=== PATIENT | male | born 1950 | race Two or more races ===

== ENCOUNTER 2023-10-12 13:00 | Inpatient (IN) | payer OTHER, MEDICAID ==
[~2023-10-12] VITALS: Ht 165.1 cm; Wt 92.4 kg
[2023-10-12 14:58] LABS: AMPHET/METH SCREEN,URINE NEGATIVE (NEGATIVE); BARBITURATE SCREEN, URINE NEGATIVE (NEGATIVE); BENZODIAZEPINES SCREEN,URINE NEGATIVE (NEGATIVE); CANNABINOID SCREEN,URINE NEGATIVE (NEGATIVE); COCAINE SCREEN,URINE NEGATIVE (NEGATIVE); METHADONE SCREEN, URINE NEGATIVE (NEGATIVE); OPIATE SCREEN,URINE NEGATIVE (NEGATIVE); PHENCYCLIDINE SCREEN,URINE NEGATIVE (NEGATIVE)
[2023-10-12 15:02] LABS: ALCOHOL, URINE DRUG SCREEN NEGATIVE (NEGATIVE)
[2023-10-12 15:13] LABS: BASOPHILS % (AUTO) 0.4 % (0.0-2.0); EOSINOPHILS % (AUTO) 0.2 % (1.0-6.0); HEMATOCRIT 43.9 % (41-53); HEMOGLOBIN 14.6 g/dL (13.5-17.5); LYMPHOCYTES # (AUTO) 1.9 K/uL (1.0-4.8); LYMPHOCYTES % (AUTO) 19.6 % (22.0-44.0); MEAN CORPUSCULAR HEMOGLOBIN 29.1 pg (26.0-34.0); MEAN CORPUSCULAR HGB CONC 33.3 G/dL (31.0-37.0); MEAN CORPUSCULAR VOLUME 88 fL (80-100); MONOCYTES % (AUTO) 10.5 % (2.0-9.0); NEUTROPHILS # (AUTO) 6.7 K/uL (1.8-7.7); NEUTROPHILS % (AUTO) 69.3 % (40.0-70.0); PLATELET COUNT (AUTO) 239 K/uL (150-450); RED BLOOD CELL COUNT(AUTO) 5.02 MIL/uL (4.50-5.90); RED CELL DISTRIBUTION WIDTH 14.6 % (11.5-14.5); WHITE BLOOD COUNT (AUTO) 9.7 K/uL (4.5-11.0)
[2023-10-12 15:23] LABS: ANION GAP 5 mmol/L (8-16); CALCIUM, TOTAL 9.7 mg/dL (8.8-10.5); CARBON DIOXIDE 34 mmol/L (22-29); CHLORIDE 101 mmol/L (98-107); GLOMERULAR FILTR. RATE CALC > 60 mL/min (>60); GLUCOSE,RANDOM 107 mg/dL (70-110); SODIUM SERUM 140 mmol/L (136-145); UREA NITROGEN, BLOOD 23 mg/dL (7-18)
[2023-10-12 15:28] LABS: ALANINE AMINOTRANSFERASE 79 U/L (12-78); ALBUMIN 4.3 g/dL (3.4-5.0); ALKALINE PHOSPHATASE 105 U/L (46-116); ASPARTATE AMINOTRANSFERASE 38 U/L (15-37); BILIRUBIN,TOTAL 1.4 mg/dL (0.1-1.0); TOTAL PROTEIN, SERUM 8.6 g/dL (6.4-8.2)
[2023-10-12 15:44] LABS: COVID AG,FIA SOURCE NASAL SWAB
[2023-10-12] MEDS: LORazepam 2 MG TABLET PO ONE (15:45)
[2023-10-12 15:58] LABS: ALCOHOL, BLOOD (SERUM) < 3 mg/dL (0-10)
[2023-10-12 16:07] LABS: SARS-COV2 (COVID) ANTIGEN,FIA Negative (Negative)
[2023-10-12] MEDS ORDERED: HALOPERIDOL 5 MG TABLET PO PRN (18:30)
[2023-10-12] MEDS ORDERED: PNEUMOCOCCAL VACCINE POLYVALENT 0.5 ML SYRINGE [PPSV23] IM. ONE (19:15)
[2023-10-12 20:43] VITALS: BP 98/53; PULSE 78; RESP 16; TEMP 96.5; O2SAT 95
[2023-10-12] MEDS: ZOLPIDEM TARTRATE 10 MG TABLET PO PRN (22:00)
[2023-10-13 08:16] VITALS: BP 147/85; PULSE 93; RESP 15; TEMP 97.9; O2SAT 98
[2023-10-13] MEDS ORDERED: BENZOCAINE/MENTHOL LOZENGE PO PRN (10:00)
[2023-10-13] MEDS ORDERED: DOCUSATE SODIUM 100 MG CAPSULE PO PRN (10:00)
[2023-10-13] MEDS ORDERED: OMEPRAZOLE 20 MG CAPSULE PO PRN (10:00)
[2023-10-13] MEDS ORDERED: IBUPROFEN 600 MG TABLET PO PRN (10:00)
[2023-10-13] MEDS ORDERED: MAG HYDROX/ALUMINUM HYD/SIMETH ES 30 ML SUSPENSION UDCUP PO PRN (10:00)
[2023-10-13] MEDS ORDERED: PETROLATUM,WHITE 28 GM JELLY TP PRN (10:00)
[2023-10-13] MEDS ORDERED: ONDANSETRON HCL 4 MG TABLET PO PRN (10:00)
[2023-10-13] MEDS ORDERED: BACITRACIN 28 GM OINTMENT TP PRN (10:00)
[2023-10-13] MEDS ORDERED: CloNIDine HCL 0.1 MG TABLET PO PRN (10:00)
[2023-10-13] MEDS ORDERED: ACETAMINOPHEN 325 MG TABLET PO PRN (10:00)
[2023-10-13] MEDS ORDERED: ALBUTEROL SULFATE HFA 90 MCG/PUFF 8 GM INHALER IH PRN (10:00)
[2023-10-13] MEDS ORDERED: LOPERAMIDE HCL 2 MG CAPSULE PO PRN (10:00)
[2023-10-13] MEDS ORDERED: CITA-144 PO (10:46)
[2023-10-13] MEDS: LORazepam 2 MG TABLET PO PRN (10:57)
[2023-10-13] MEDS: BuPROPion HCL XL 150 MG ER TABLET PO SCH (11:06)
[2023-10-13] MEDS: SERTRALINE HCL 50 MG TABLET PO SCH (11:06)
[2023-10-13 21:10] VITALS: BP 130/86; PULSE 87; RESP 16; TEMP 97.5; O2SAT 98
[2023-10-14 07:06] LABS: HEPATITIS C AB (EIA) Reactive (Non Reactive)
[2023-10-14 08:22] VITALS: BP 142/88; PULSE 83; RESP 14; TEMP 98; O2SAT 99
[2023-10-14] MEDS: MAGNESIUM HYDROXIDE SUSPENSION 30 ML UDCUP PO PRN (12:30)
[2023-10-14] MEDS ORDERED: SERT-158 PO (18:32)
[2023-10-14] MEDS ORDERED: BUPR-514 PO (18:33)
[2023-10-19 11:11] LABS: HEPATITIS C RT-PCR,QNT HCV Not Detected IU/mL
== END 2023-10-14 19:10 | disposition home or self-care (01) | DRG 885 ==
LOC: EMS 13:03 → B2S 16:18
PROVIDERS: ADMIT Psychiatry & Neurology Psychiatry; ATTEND Psychiatry & Neurology Psychiatry
DX: F33.2 Major depressive disorder, recurrent severe without psychotic features (principal); R45.851 Suicidal ideations; F41.9 Anxiety disorder, unspecified; G47.00 Insomnia, unspecified; Z20.822 Contact with and (suspected) exposure to COVID-19; I10 Essential (primary) hypertension; F19.10 Other psychoactive substance abuse, uncomplicated; K59.00 Constipation, unspecified; F29 Unspecified psychosis not due to a substance or known physiological condition
CPT/HCPCS: 80053; 80307; 85025; 86803; 87340; 87522; G0480

== ENCOUNTER 2023-10-25 12:50 | Emergency (ER) | payer OTHER, MEDICAID ==
[~2023-10-25] VITALS: Ht 167.6 cm; Wt 86.4 kg
[~2023-10-25 12:50] MED LIST: BUPR-514 PO; SERT-158 PO
[2023-10-25 13:48] VITALS: BP 159/100; PULSE 88; RESP 18; TEMP 98.7
[2023-10-25] MEDS ORDERED: LORA-999 PO (14:09)
[2023-10-25] MEDS ORDERED: AMLO-258 PO (14:09)
[2023-10-25] MEDS ORDERED: QUET25TA PO (14:09)
[2023-10-25] MEDS ORDERED: PANT-31 PO (14:09)
[2023-10-25] MEDS: LORazepam 2 MG/ML VIAL IM ONE (14:20)
[2023-10-25 14:34] LABS: APPEARANCE,URINE TURBID (CLEAR); BILIRUBIN,URINE NEGATIVE (NEGATIVE); COLOR,URINE YELLOW (YELLOW); GLUCOSE, URINE (UA) NEGATIVE (NEGATIVE); KETONES,URINE NEGATIVE (NEGATIVE); LEUKOCYTE ESTERASE ,URINE NEGATIVE (NEGATIVE); NITRATE,URINE NEGATIVE (NEGATIVE); OCCULT BLOOD,URINE NEGATIVE (NEGATIVE); PH,URINE 7.5 (5.0-8.0); PH,URINE DRUG SCREEN 7.5 (5.0-8.0); PROTEIN,URINE NEGATIVE (NEGATIVE); SPECIFIC GRAVITIY, URINE 1.012 (1.003-1.030); UROBILINOGEN,URINE <=1.0 mg/dL (<=1.0)
[2023-10-25 14:41] LABS: BASOPHILS % (AUTO) 0.4 % (0.0-2.0); EOSINOPHILS % (AUTO) 0.6 % (1.0-6.0); HEMATOCRIT 43.9 % (41-53); HEMOGLOBIN 14.5 g/dL (13.5-17.5); LYMPHOCYTES # (AUTO) 1.9 K/uL (1.0-4.8); LYMPHOCYTES % (AUTO) 21.7 % (22.0-44.0); MEAN CORPUSCULAR HEMOGLOBIN 28.7 pg (26.0-34.0); MEAN CORPUSCULAR HGB CONC 33.1 G/dL (31.0-37.0); MEAN CORPUSCULAR VOLUME 87 fL (80-100); MONOCYTES % (AUTO) 11.3 % (2.0-9.0); NEUTROPHILS # (AUTO) 5.8 K/uL (1.8-7.7); PLATELET COUNT (AUTO) 206 K/uL (150-450); RED BLOOD CELL COUNT(AUTO) 5.06 MIL/uL (4.50-5.90); RED CELL DISTRIBUTION WIDTH 15.1 % (11.5-14.5); WHITE BLOOD COUNT (AUTO) 8.7 K/uL (4.5-11.0)
[2023-10-25 14:41] LABS: ALCOHOL, URINE DRUG SCREEN NEGATIVE (NEGATIVE); AMPHET/METH SCREEN,URINE NEGATIVE (NEGATIVE); BARBITURATE SCREEN, URINE NEGATIVE (NEGATIVE); BENZODIAZEPINES SCREEN,URINE NEGATIVE (NEGATIVE); CANNABINOID SCREEN,URINE NEGATIVE (NEGATIVE); COCAINE SCREEN,URINE NEGATIVE (NEGATIVE); METHADONE SCREEN, URINE NEGATIVE (NEGATIVE); OPIATE SCREEN,URINE NEGATIVE (NEGATIVE); PHENCYCLIDINE SCREEN,URINE NEGATIVE (NEGATIVE)
[2023-10-25 14:52] LABS: ANION GAP 5 mmol/L (8-16); CALCIUM, TOTAL 9.6 mg/dL (8.8-10.5); CARBON DIOXIDE 32 mmol/L (22-29); CHLORIDE 100 mmol/L (98-107); CREATININE 0.83 mg/dL (0.60-1.30); GLOMERULAR FILTR. RATE CALC > 60 mL/min (>60); GLUCOSE,RANDOM 110 mg/dL (70-110); POTASSIUM 3.5 mmol/L (3.5-5.1); SODIUM SERUM 137 mmol/L (136-145); UREA NITROGEN, BLOOD 15 mg/dL (7-18)
[2023-10-25 14:56] LABS: COVID AG,FIA SOURCE NASAL SWAB
[2023-10-25 15:04] LABS: ALCOHOL, BLOOD (SERUM) < 3 mg/dL (0-10)
[2023-10-25 15:25] LABS: SARS-COV2 (COVID) ANTIGEN,FIA Negative (Negative)
[2023-10-25] MEDS: HALOPERIDOL LACTATE 5 MG/ML VIAL IM ONE (15:37)
[2023-10-25] MEDS: DiphenhydrAMINE HCL 50 MG/ML VIAL IM ONE (15:38)
[2023-10-26] MEDS ORDERED: CHOL500043 PO (11:21)
[2023-10-26] MEDS ORDERED: QUET25TA PO (11:34)
[2023-10-26] MEDS ORDERED: LAMO25TA36 PO (11:34)
[2023-10-26] MEDS ORDERED: ESCI-8 PO (11:34)
== END 2023-10-25 17:09 | disposition home or self-care (01) ==
LOC: EMS 12:50
DX: F25.9 Schizoaffective disorder, unspecified (principal); F41.9 Anxiety disorder, unspecified; I10 Essential (primary) hypertension; Z20.822 Contact with and (suspected) exposure to COVID-19
CPT/HCPCS: 99284; 87426; 80048; 85025; 36415; 96372; 80307; 81003; G0480; J1200; J1630; J2060

== ENCOUNTER 2023-10-26 10:50 | Inpatient (IN) | payer OTHER, MEDICAID ==
[~2023-10-26] VITALS: Ht 165.1 cm; Wt 90.7 kg
[~2023-10-26 10:50] MED LIST changes: +AMLO-258 PO; +LORA-999 PO; +PANT-31 PO; +QUET25TA PO
[2023-10-26] MEDS ORDERED: CHOL500043 PO (11:21)
[2023-10-26] MEDS ORDERED: QUET25TA PO (11:34)
[2023-10-26] MEDS ORDERED: LAMO25TA36 PO (11:34)
[2023-10-26] MEDS ORDERED: ESCI-8 PO (11:34)
[2023-10-26] MEDS: QUEtiapine FUMARATE 25 MG TABLET PO ONE (18:42)
[2023-10-26] MEDS: TraZODone HCL 50 MG TABLET PO ONE (20:44)
[2023-10-27 05:04] VITALS: BP 140/88; PULSE 87; RESP 18; TEMP 97.4; O2SAT 98
[2023-10-27] MEDS ORDERED: PNEUMOCOCCAL VACCINE POLYVALENT 0.5 ML SYRINGE [PPSV23] IM. ONE (05:30)
[2023-10-27] MEDS ORDERED: ONDANSETRON HCL 4 MG TABLET PO PRN (09:00)
[2023-10-27] MEDS ORDERED: ALBUTEROL SULFATE HFA 90 MCG/PUFF 8 GM INHALER IH PRN (09:00)
[2023-10-27] MEDS ORDERED: BACITRACIN 28 GM OINTMENT TP PRN (09:00)
[2023-10-27] MEDS ORDERED: MAGNESIUM HYDROXIDE SUSPENSION 30 ML UDCUP PO PRN (09:00)
[2023-10-27] MEDS ORDERED: LOPERAMIDE HCL 2 MG CAPSULE PO PRN (09:00)
[2023-10-27] MEDS ORDERED: PETROLATUM,WHITE 28 GM JELLY TP PRN (09:00)
[2023-10-27] MEDS ORDERED: OMEPRAZOLE 20 MG CAPSULE PO PRN (09:00)
[2023-10-27] MEDS ORDERED: CloNIDine HCL 0.1 MG TABLET PO PRN (09:00)
[2023-10-27] MEDS ORDERED: DOCUSATE SODIUM 100 MG CAPSULE PO PRN (09:00)
[2023-10-27] MEDS ORDERED: ACETAMINOPHEN 325 MG TABLET PO PRN (09:00)
[2023-10-27] MEDS ORDERED: MAG HYDROX/ALUMINUM HYD/SIMETH ES 30 ML SUSPENSION UDCUP PO PRN (09:00)
[2023-10-27] MEDS ORDERED: BENZOCAINE/MENTHOL LOZENGE PO PRN (09:00)
[2023-10-27] MEDS ORDERED: IBUPROFEN 600 MG TABLET PO PRN (09:00)
[2023-10-27] MEDS: AmLODIPine BESYLATE 10 MG TABLET PO SCH (09:13)
[2023-10-27 09:24] VITALS: BP 140/79; PULSE 76; RESP 17; TEMP 97.8
[2023-10-27] MEDS: HALOPERIDOL 5 MG TABLET PO PRN (09:43)
[2023-10-27 20:42] VITALS: BP 106/75; PULSE 78; RESP 18; TEMP 98; O2SAT 98
[2023-10-27 20:43] VITALS: RESP 18
[2023-10-27] MEDS: ZOLPIDEM TARTRATE 10 MG TABLET PO PRN (21:15)
[2023-10-28] MEDS: LORazepam 2 MG TABLET PO PRN (06:22)
[2023-10-28 09:19] VITALS: BP 132/88; PULSE 87; RESP 18; TEMP 97.7; O2SAT 99
== END 2023-10-28 16:30 | disposition home or self-care (01) | DRG 885 ==
LOC: EMS 10:50 → 3EC 10-27 04:36
PROVIDERS: ADMIT Psychiatry & Neurology Psychiatry; ATTEND Psychiatry & Neurology Psychiatry
DX: F29 Unspecified psychosis not due to a substance or known physiological condition (principal); R45.851 Suicidal ideations; F31.9 Bipolar disorder, unspecified; K59.00 Constipation, unspecified; G47.00 Insomnia, unspecified; F41.9 Anxiety disorder, unspecified; F19.10 Other psychoactive substance abuse, uncomplicated; I10 Essential (primary) hypertension
CPT/HCPCS: 99285; Z7502; Z7610

== ENCOUNTER 2024-05-23 10:26 | Emergency (ER) | payer OTHER, MEDICAID ==
[~2024-05-23] VITALS: Ht 165.1 cm; Wt 86.4 kg
[~2024-05-23 10:26] MED LIST changes: -BUPR-514 PO; -LORA-999 PO; -PANT-31 PO; -QUET25TA PO; -SERT-158 PO
[2024-05-23 10:58] VITALS: BP 111/71; PULSE 103; RESP 18; TEMP 98.2; O2SAT 98
[2024-05-23 12:01] LABS: BASOPHILS % (AUTO) 0.4 % (0.0-2.0); EOSINOPHILS % (AUTO) 2.6 % (1.0-6.0); HEMATOCRIT 35.4 % (41-53); HEMOGLOBIN 11.6 g/dL (13.5-17.5); LYMPHOCYTES # (AUTO) 1.8 K/uL (1.0-4.8); LYMPHOCYTES % (AUTO) 20.3 % (22.0-44.0); MEAN CORPUSCULAR HEMOGLOBIN 25.2 pg (26.0-34.0); MEAN CORPUSCULAR HGB CONC 32.7 G/dL (31.0-37.0); MEAN CORPUSCULAR VOLUME 77 fL (80-100); MONOCYTES # (AUTO) 0.8 K/uL (0.1-1.0); MONOCYTES % (AUTO) 9.2 % (2.0-9.0); NEUTROPHILS % (AUTO) 67.5 % (40.0-70.0); PLATELET COUNT (AUTO) 252 K/uL (150-450); RED CELL DISTRIBUTION WIDTH 16.8 % (11.5-14.5); WHITE BLOOD COUNT (AUTO) 8.9 K/uL (4.5-11.0)
[2024-05-23 12:03] LABS: ANION GAP 8 mmol/L (8-16); CALCIUM, TOTAL 9.1 mg/dL (8.8-10.5); CARBON DIOXIDE 29 mmol/L (22-29); CHLORIDE 100 mmol/L (98-107); CREATININE 0.87 mg/dL (0.60-1.30); GLOMERULAR FILTR. RATE CALC > 60 mL/min (>60); GLUCOSE,RANDOM 110 mg/dL (70-110); POTASSIUM 3.5 mmol/L (3.5-5.1); SODIUM SERUM 137 mmol/L (136-145); UREA NITROGEN, BLOOD 20 mg/dL (7-18)
[2024-05-23 12:16] LABS: ALCOHOL, BLOOD (SERUM) < 3 mg/dL (0-10)
[2024-05-23 12:35] LABS: COVID AG,FIA SOURCE NASAL SWAB
[2024-05-23 12:42] LABS: RBC MORPHOLOGY COMMENT ABNORMAL RBC MORPH
[2024-05-23 13:24] LABS: APPEARANCE,URINE CLEAR (CLEAR); BILIRUBIN,URINE NEGATIVE (NEGATIVE); COLOR,URINE YELLOW (YELLOW); GLUCOSE, URINE (UA) NEGATIVE (NEGATIVE); KETONES,URINE NEGATIVE (NEGATIVE); LEUKOCYTE ESTERASE ,URINE NEGATIVE (NEGATIVE); NITRATE,URINE NEGATIVE (NEGATIVE); OCCULT BLOOD,URINE NEGATIVE (NEGATIVE); PROTEIN,URINE NEGATIVE (NEGATIVE); SPECIFIC GRAVITIY, URINE 1.017 (1.003-1.030); UROBILINOGEN,URINE <=1.0 mg/dL (<=1.0)
[2024-05-23] MEDS: LORazepam 1 MG TABLET PO ONE (13:27)
[2024-05-23 13:32] LABS: ALCOHOL, URINE DRUG SCREEN NEGATIVE (NEGATIVE); AMPHET/METH SCREEN,URINE NEGATIVE (NEGATIVE); BARBITURATE SCREEN, URINE NEGATIVE (NEGATIVE); BENZODIAZEPINES SCREEN,URINE NEGATIVE (NEGATIVE); CANNABINOID SCREEN,URINE NEGATIVE (NEGATIVE); COCAINE SCREEN,URINE NEGATIVE (NEGATIVE); METHADONE SCREEN, URINE NEGATIVE (NEGATIVE); OPIATE SCREEN,URINE NEGATIVE (NEGATIVE); PHENCYCLIDINE SCREEN,URINE NEGATIVE (NEGATIVE)
[2024-05-23 13:36] LABS: SARS-COV2 (COVID) ANTIGEN,FIA Negative (Negative)
== END 2024-05-23 14:07 | disposition home or self-care (01) ==
LOC: EMS 10:26
DX: F41.9 Anxiety disorder, unspecified (principal); F32.A Depression, unspecified; E11.9 Type 2 diabetes mellitus without complications; I10 Essential (primary) hypertension; Z79.899 Other long term (current) drug therapy; Z20.822 Contact with and (suspected) exposure to COVID-19
CPT/HCPCS: 99283; 87426; 80048; 85025; 36415; 82962; 80307; 81003; G0480